=== PATIENT | female | born 1985 | race Caucasian/White ===

== ENCOUNTER 2018-11-11 17:52 | Inpatient (IN) ==
[2018-11-11] MEDS: MORPHINE 4 MG/1 ML VIAL IV PRN (19:43)
[2018-11-11] MEDS: DEXTROSE 5% NACL 0.45% 1,000 ML IV SCH (19:43)
[2018-11-11] MEDS: ONDANSETRON 4 MG/2 ML VIAL IV PRN (19:45)
[2018-11-11] MEDS ORDERED: PROMETHAZINE INJ 25 MG in SODIUM CHLORIDE 0.9% 50 ML IV PRN (21:30)
[2018-11-12] MEDS ORDERED: GLUCAGON 1 MG VIAL IM PRN (00:07)
[2018-11-12] MEDS ORDERED: DEXTROSE 50% 25 GM/50 ML VIAL IV PRN (00:07)
[2018-11-12] MEDS: cefOXitin 2,000 MG in SYRINGE 1 EACH IV SCH ×4 (00:44→18:21)
[2018-11-12] MEDS: INSULIN LISPRO 100 UNIT/ML SUBCUT SCH ×4 (01:56→18:06)
[2018-11-12] MEDS: MORPHINE 4 MG/1 ML VIAL IV PRN ×2 (05:06→08:48)
[2018-11-12] MEDS: DEXTROSE 5% NACL 0.45% 1,000 ML IV SCH ×2 (05:11→11:00)
[2018-11-12 05:14] LABS: Basophils # 0.1 10*3/uL (0.0-0.2); Basophils % 0.6 % (0.0-0.8); Eosinophils # 0.3 10*3/uL (0.0-0.87); Eosinophils % 2.3 % (0.00-10.9); Hematocrit 37.3 VOL% (35.7-47.0); Hemoglobin 12.3 GM/DL (12.0-16.0); Immature Granulocytes % 0.3 %; Immature Granulocytes Absolute 0.04 #; Lymphocytes # 2.5 10*3/uL (1.4-4.0); Mean Corpuscular Volume 87.4 FL (87-102); Mean Platelet Volume 10.7 FL (9.6-12.0); Monocytes % 5.3 % (1.7-12.7); Neutrophils % 71.5 % (38.7-73.9); Platelet Count 394 T/CUMM (130-400); Red Blood Count 4.27 MC/CUMM (3.8-5.5); Red Cell Distribution Width 13.5 % (9.3-17.3); White Blood Count 12.5 T/CUMM (4-12)
[2018-11-12 05:37] LABS: Bilirubin,Total 1.5 MG/DL (0.2-1.0); Calcium 8.6 MG/DL (8.5-10.1); Osmolality,Calculated 283.5 MOS/KG (273-304); Total Protein 6.9 G/DL (6.4-8.3)
[2018-11-12] MEDS: FAMOTIDINE 20 MG/2 ML VIAL IV SCH ×2 (08:49→21:35)
[2018-11-12] MEDS ORDERED: MORPHINE 4 MG/1 ML VIAL IV PRN (11:03)
[2018-11-12] MEDS: ENOXAPARIN 40 MG/0.4 ML SYRINGE SUBCUT SCH (13:18)
[2018-11-12] MEDS ORDERED: HYDROmorphone 2 MG/1 ML VIAL IV ONE (15:33)
[2018-11-13] MEDS: ONDANSETRON 4 MG/2 ML VIAL IV PRN (00:10)
[2018-11-13] MEDS: cefOXitin 2,000 MG in SYRINGE 1 EACH IV SCH ×5 (00:11→23:26)
[2018-11-13] MEDS: HYDROmorphone 2 MG/1 ML VIAL IV PRN ×5 (00:11→21:38)
[2018-11-13] MEDS: INSULIN LISPRO 100 UNIT/ML SUBCUT SCH ×5 (00:15→23:27)
[2018-11-13] MEDS: DEXTROSE 5% NACL 0.45% 1,000 ML IV SCH ×4 (01:56→22:10)
[2018-11-13 05:44] LABS: Basophils # 0.1 10*3/uL (0.0-0.2); Basophils % 0.4 % (0.0-0.8); Eosinophils # 0.4 10*3/uL (0.0-0.87); Eosinophils % 2.3 % (0.00-10.9); Hematocrit 37.7 VOL% (35.7-47.0); Hemoglobin 11.9 GM/DL (12.0-16.0); Immature Granulocytes % 0.6 %; Immature Granulocytes Absolute 0.09 #; Lymphocytes # 2.9 10*3/uL (1.4-4.0); Lymphocytes % 18.4 % (21.3-54.2); Mean Corpuscular HGB Conc 31.6 GM/DL (32-36); Mean Corpuscular Volume 88.7 FL (87-102); Mean Platelet Volume 10.5 FL (9.6-12.0); Monocytes % 5.6 % (1.7-12.7); Neutrophils % 72.7 % (38.7-73.9); Platelet Count 400 T/CUMM (130-400); Red Blood Count 4.25 MC/CUMM (3.8-5.5); Red Cell Distribution Width 13.3 % (9.3-17.3); White Blood Count 15.6 T/CUMM (4-12)
[2018-11-13 06:05] LABS: Calcium 8.4 MG/DL (8.5-10.1); Osmolality,Calculated 278.7 MOS/KG (273-304)
[2018-11-13] MEDS: FAMOTIDINE 20 MG/2 ML VIAL IV SCH ×2 (09:05→21:46)
[2018-11-13] MEDS: ENOXAPARIN 40 MG/0.4 ML SYRINGE SUBCUT SCH (13:01)
[2018-11-13] MEDS: POTASSIUM CHLORIDE RIDER 10 MEQ in PREMIX 1 EACH IV PRN (23:27)
[2018-11-14] MEDS: POTASSIUM CHLORIDE RIDER 10 MEQ in PREMIX 1 EACH IV PRN ×7 (01:38→17:27)
[2018-11-14] MEDS: HYDROmorphone 2 MG/1 ML VIAL IV PRN ×5 (01:56→22:53)
[2018-11-14] MEDS: cefOXitin 2,000 MG in SYRINGE 1 EACH IV SCH ×3 (05:57→21:59)
[2018-11-14] MEDS: INSULIN LISPRO 100 UNIT/ML SUBCUT SCH ×3 (06:04→18:09)
[2018-11-14 06:57] LABS: Basophils # 0.1 10*3/uL (0.0-0.2); Basophils % 0.6 % (0.0-0.8); Eosinophils # 0.4 10*3/uL (0.0-0.87); Eosinophils % 3.3 % (0.00-10.9); Hematocrit 35.8 VOL% (35.7-47.0); Hemoglobin 11.4 GM/DL (12.0-16.0); Immature Granulocytes % 0.4 %; Immature Granulocytes Absolute 0.05 #; Lymphocytes # 3.4 10*3/uL (1.4-4.0); Lymphocytes % 25.7 % (21.3-54.2); Mean Corpuscular HGB Conc 31.8 GM/DL (32-36); Mean Corpuscular Volume 88.6 FL (87-102); Mean Platelet Volume 10.3 FL (9.6-12.0); Monocytes % 6.6 % (1.7-12.7); Neutrophils % 63.4 % (38.7-73.9); Platelet Count 357 T/CUMM (130-400); Red Blood Count 4.04 MC/CUMM (3.8-5.5); Red Cell Distribution Width 13.2 % (9.3-17.3); White Blood Count 13.3 T/CUMM (4-12)
[2018-11-14 07:21] LABS: Calcium 8.3 MG/DL (8.5-10.1); Osmolality,Calculated 281.3 MOS/KG (273-304)
[2018-11-14] MEDS: FAMOTIDINE 20 MG/2 ML VIAL IV SCH ×2 (08:30→22:12)
[2018-11-14] MEDS: DEXTROSE 5% NACL 0.45% 1,000 ML IV SCH ×2 (10:03→11:35)
[2018-11-14] MEDS: ENOXAPARIN 40 MG/0.4 ML SYRINGE SUBCUT SCH (12:08)
[2018-11-15] MEDS: INSULIN LISPRO 100 UNIT/ML SUBCUT SCH ×4 (00:53→17:49)
[2018-11-15] MEDS: DEXTROSE 5% NACL 0.45% 1,000 ML IV SCH ×2 (01:41→03:58)
[2018-11-15] MEDS: HYDROmorphone 2 MG/1 ML VIAL IV PRN ×5 (03:53→21:22)
[2018-11-15] MEDS: POTASSIUM CHLORIDE RIDER 10 MEQ in PREMIX 1 EACH IV PRN ×5 (03:57→17:40)
[2018-11-15 05:23] LABS: Basophils # 0.1 10*3/uL (0.0-0.2); Basophils % 0.5 % (0.0-0.8); Eosinophils # 0.3 10*3/uL (0.0-0.87); Eosinophils % 2.5 % (0.00-10.9); Hematocrit 34.7 VOL% (35.7-47.0); Hemoglobin 11.4 GM/DL (12.0-16.0); Immature Granulocytes % 0.2 %; Immature Granulocytes Absolute 0.03 #; Lymphocytes # 2.6 10*3/uL (1.4-4.0); Lymphocytes % 20.2 % (21.3-54.2); Mean Corpuscular HGB Conc 32.9 GM/DL (32-36); Mean Corpuscular Volume 86.5 FL (87-102); Mean Platelet Volume 10.1 FL (9.6-12.0); Monocytes % 7.5 % (1.7-12.7); Neutrophils % 69.1 % (38.7-73.9); Platelet Count 355 T/CUMM (130-400); Red Blood Count 4.01 MC/CUMM (3.8-5.5); Red Cell Distribution Width 13.2 % (9.3-17.3)
[2018-11-15] MEDS: cefOXitin 2,000 MG in SYRINGE 1 EACH IV SCH ×4 (05:30→22:30)
[2018-11-15 05:58] LABS: Calcium 8.4 MG/DL (8.5-10.1); Osmolality,Calculated 282.1 MOS/KG (273-304)
[2018-11-15] MEDS ORDERED: POTASSIUM CHLORIDE 20 MEQ TABLET PO PRN (08:06)
[2018-11-15] MEDS ORDERED: POTASSIUM CHLORIDE RIDER 10 MEQ in PREMIX 1 EACH IV PRN (08:06)
[2018-11-15] MEDS: FAMOTIDINE 20 MG/2 ML VIAL IV SCH ×2 (08:45→21:24)
[2018-11-15] MEDS: POTASSIUM CHLORIDE INJ 40 MEQ in DEXTROSE 5% NACL 0.45% 1,000 ML IV SCH ×2 (09:48→17:40)
[2018-11-15] MEDS: ENOXAPARIN 40 MG/0.4 ML SYRINGE SUBCUT SCH (12:14)
[2018-11-15] MEDS: ONDANSETRON 4 MG/2 ML VIAL IV PRN (21:23)
[2018-11-16] MEDS: HYDROmorphone 2 MG/1 ML VIAL IV PRN ×6 (00:30→21:55)
[2018-11-16] MEDS: ONDANSETRON 4 MG/2 ML VIAL IV PRN ×3 (00:30→21:55)
[2018-11-16] MEDS: INSULIN LISPRO 100 UNIT/ML SUBCUT SCH ×4 (01:58→18:06)
[2018-11-16] MEDS: POTASSIUM CHLORIDE INJ 40 MEQ in DEXTROSE 5% NACL 0.45% 1,000 ML IV SCH ×2 (02:58→15:08)
[2018-11-16 04:41] LABS: Basophils # 0.1 10*3/uL (0.0-0.2); Basophils % 0.5 % (0.0-0.8); Eosinophils # 0.4 10*3/uL (0.0-0.87); Hematocrit 36.6 VOL% (35.7-47.0); Hemoglobin 11.8 GM/DL (12.0-16.0); Immature Granulocytes % 0.3 %; Immature Granulocytes Absolute 0.04 #; Lymphocytes # 2.6 10*3/uL (1.4-4.0); Lymphocytes % 21.5 % (21.3-54.2); Mean Corpuscular HGB Conc 32.2 GM/DL (32-36); Mean Corpuscular Volume 87.8 FL (87-102); Mean Platelet Volume 10.1 FL (9.6-12.0); Monocytes % 6.7 % (1.7-12.7); Platelet Count 391 T/CUMM (130-400); Red Blood Count 4.17 MC/CUMM (3.8-5.5); Red Cell Distribution Width 13.3 % (9.3-17.3)
[2018-11-16 05:13] LABS: Calcium 8.8 MG/DL (8.5-10.1); Osmolality,Calculated 278.3 MOS/KG (273-304)
[2018-11-16] MEDS: cefOXitin 2,000 MG in SYRINGE 1 EACH IV SCH ×4 (05:45→22:10)
[2018-11-16] MEDS ORDERED: MAGNESIUM SULF RIDER 2 GM in PREMIX 1 EACH IV ONE (07:47)
[2018-11-16] MEDS: FAMOTIDINE 20 MG/2 ML VIAL IV SCH ×2 (08:20→21:57)
[2018-11-16] MEDS: ENOXAPARIN 40 MG/0.4 ML SYRINGE SUBCUT SCH (12:59)
[2018-11-16] MEDS ORDERED: SUMAtriptan 25 MG TABLET PO PRN (13:08)
[2018-11-17] MEDS: HYDROmorphone 2 MG/1 ML VIAL IV PRN ×7 (01:28→22:06)
[2018-11-17] MEDS: POTASSIUM CHLORIDE INJ 40 MEQ in DEXTROSE 5% NACL 0.45% 1,000 ML IV SCH ×3 (01:30→11:16)
[2018-11-17] MEDS: INSULIN LISPRO 100 UNIT/ML SUBCUT SCH ×5 (01:37→18:11)
[2018-11-17] MEDS: ONDANSETRON 4 MG/2 ML VIAL IV PRN (03:30)
[2018-11-17 04:39] LABS: Basophils % 0.4 % (0.0-0.8); Eosinophils # 0.3 10*3/uL (0.0-0.87); Eosinophils % 3.2 % (0.00-10.9); Hematocrit 36.6 VOL% (35.7-47.0); Hemoglobin 11.7 GM/DL (12.0-16.0); Immature Granulocytes % 0.2 %; Immature Granulocytes Absolute 0.02 #; Lymphocytes # 2.4 10*3/uL (1.4-4.0); Lymphocytes % 23.3 % (21.3-54.2); Mean Corpuscular Volume 88.8 FL (87-102); Mean Platelet Volume 10.5 FL (9.6-12.0); Monocytes % 7.8 % (1.7-12.7); Neutrophils % 65.1 % (38.7-73.9); Platelet Count 411 T/CUMM (130-400); Red Blood Count 4.12 MC/CUMM (3.8-5.5); Red Cell Distribution Width 13.2 % (9.3-17.3); White Blood Count 10.3 T/CUMM (4-12)
[2018-11-17] MEDS ORDERED: ONDANSETRON 4 MG/2 ML VIAL IV PRN ×2 (04:40→14:50)
[2018-11-17] MEDS ORDERED: ONDANSETRON 4 MG/2 ML VIAL IV STA (04:40)
[2018-11-17] MEDS: cefOXitin 2,000 MG in SYRINGE 1 EACH IV SCH ×4 (05:05→23:20)
[2018-11-17 05:07] LABS: Calcium 8.4 MG/DL (8.5-10.1); Osmolality,Calculated 276.5 MOS/KG (273-304)
[2018-11-17] MEDS ORDERED: LIDOCAINE 1% 5 ML VIAL ONE (10:57)
[2018-11-17] MEDS ORDERED: BUPIVACAINE 0.5% 50 ML VIAL ONE (10:57)
[2018-11-17] MEDS ORDERED: DEXAMETHASONE 4 MG/1 ML VIAL ONE (10:57)
[2018-11-17] MEDS ORDERED: EPINEPHrine 1 MG/ML VIAL ONE (10:57)
[2018-11-17] MEDS ORDERED: MIDAZOLAM 2 MG/2 ML VIAL ONE (11:32)
[2018-11-17] MEDS ORDERED: fentaNYL 100 MCG/2 ML VIAL ONE ×2 (11:32→14:56)
[2018-11-17] MEDS ORDERED: ONDANSETRON 4 MG/2 ML VIAL ONE ×2 (14:43→14:53)
[2018-11-17] MEDS ORDERED: HYDROmorphone 2 MG/1 ML VIAL ONE (14:43)
[2018-11-17] MEDS ORDERED: SEVOFLURANE 1 UNIT/15 MINUTE INH ONE (14:53)
[2018-11-17] MEDS ORDERED: GLYCOPYRROLATE 0.4 MG/2 ML VIAL ONE (14:53)
[2018-11-17] MEDS ORDERED: NEOSTIGMINE 10 MG/10 ML VIAL ONE (14:53)
[2018-11-17] MEDS ORDERED: LACTATED RINGERS 1,000 ML IV ONE (14:53)
[2018-11-17] MEDS ORDERED: ROCURONIUM 100 MG/10 ML VIAL IV ONE (14:53)
[2018-11-17] MEDS ORDERED: PROPOFOL 200 MG/20 ML VIAL IV ONE (14:53)
[2018-11-17] MEDS ORDERED: MEPERIDINE 25 MG/1 ML VIAL IV ONE (15:09)
[2018-11-17] MEDS: FAMOTIDINE 20 MG/2 ML VIAL IV SCH ×2 (17:57→20:54)
[2018-11-17] MEDS: ENOXAPARIN 40 MG/0.4 ML SYRINGE SUBCUT SCH (17:58)
[2018-11-17] MEDS ORDERED: DEXT 5% NACL 0.45% KCL 40 MEQ 40 MEQ/1,000 ML BAG IV SCH (18:10)
[2018-11-17] MEDS: DEXT 5% LACT RING KCL 20 MEQ 20 MEQ/1,000 ML BAG IV SCH (18:10)
[2018-11-18] MEDS: HYDROmorphone 2 MG/1 ML VIAL IV PRN ×6 (01:12→21:29)
[2018-11-18] MEDS: INSULIN LISPRO 100 UNIT/ML SUBCUT SCH ×5 (01:14→18:36)
[2018-11-18] MEDS: DEXT 5% LACT RING KCL 20 MEQ 20 MEQ/1,000 ML BAG IV SCH ×3 (02:33→18:35)
[2018-11-18 05:02] LABS: Basophils # 0.1 10*3/uL (0.0-0.2); Basophils % 0.3 % (0.0-0.8); Eosinophils # 0.1 10*3/uL (0.0-0.87); Eosinophils % 0.5 % (0.00-10.9); Hematocrit 36.6 VOL% (35.7-47.0); Hemoglobin 11.5 GM/DL (12.0-16.0); Immature Granulocytes % 0.6 %; Lymphocytes # 2.1 10*3/uL (1.4-4.0); Lymphocytes % 13.7 % (21.3-54.2); Mean Corpuscular HGB Conc 31.4 GM/DL (32-36); Mean Corpuscular Volume 89.3 FL (87-102); Mean Platelet Volume 10.9 FL (9.6-12.0); Monocytes % 6.9 % (1.7-12.7); Platelet Count 306 T/CUMM (130-400); Red Cell Distribution Width 13.2 % (9.3-17.3); White Blood Count 15.5 T/CUMM (4-12)
[2018-11-18 05:27] LABS: Osmolality,Calculated 275.7 MOS/KG (273-304)
[2018-11-18] MEDS: cefOXitin 2,000 MG in SYRINGE 1 EACH IV SCH ×4 (05:48→23:47)
[2018-11-18] MEDS: FAMOTIDINE 20 MG/2 ML VIAL IV SCH ×2 (08:55→21:32)
[2018-11-18] MEDS: ENOXAPARIN 40 MG/0.4 ML SYRINGE SUBCUT SCH (12:49)
[2018-11-18] MEDS: ALBUTEROL/IPRATROPIUM 3 ML NEB RESP TX SCH ×2 (13:36→19:26)
[2018-11-19] MEDS: INSULIN LISPRO 100 UNIT/ML SUBCUT SCH ×4 (00:51→19:10)
[2018-11-19] MEDS: HYDROmorphone 2 MG/1 ML VIAL IV PRN ×7 (00:53→22:48)
[2018-11-19] MEDS: ALBUTEROL/IPRATROPIUM 3 ML NEB RESP TX SCH ×4 (01:15→19:15)
[2018-11-19] MEDS: DEXT 5% LACT RING KCL 20 MEQ 20 MEQ/1,000 ML BAG IV SCH ×2 (02:48→21:02)
[2018-11-19] MEDS: cefOXitin 2,000 MG in SYRINGE 1 EACH IV SCH ×4 (04:14→22:49)
[2018-11-19 05:13] LABS: Basophils # 0.1 10*3/uL (0.0-0.2); Basophils % 0.6 % (0.0-0.8); Eosinophils # 0.3 10*3/uL (0.0-0.87); Eosinophils % 2.6 % (0.00-10.9); Hematocrit 34.8 VOL% (35.7-47.0); Hemoglobin 10.9 GM/DL (12.0-16.0); Immature Granulocytes % 0.5 %; Immature Granulocytes Absolute 0.05 #; Lymphocytes # 2.9 10*3/uL (1.4-4.0); Lymphocytes % 26.4 % (21.3-54.2); Mean Corpuscular HGB Conc 31.3 GM/DL (32-36); Mean Corpuscular Volume 89.9 FL (87-102); Mean Platelet Volume 11.4 FL (9.6-12.0); Monocytes % 6.6 % (1.7-12.7); Neutrophils % 63.3 % (38.7-73.9); Platelet Count 279 T/CUMM (130-400); Red Blood Count 3.87 MC/CUMM (3.8-5.5); Red Cell Distribution Width 13.5 % (9.3-17.3); White Blood Count 10.9 T/CUMM (4-12)
[2018-11-19 05:43] LABS: Eosinophils 7 % (0-10); Hypochromasia 1+; Lymphocytes 28 % (20-55); Platelet Estimate Adequate; Segmented Neutrophils 54 % (50-85); Total Cells Counted 100
[2018-11-19 06:35] LABS: Calcium 8.6 MG/DL (8.5-10.1); Osmolality,Calculated 278.4 MOS/KG (273-304)
[2018-11-19] MEDS ORDERED: MAGNESIUM SULF RIDER 2 GM in PREMIX 1 EACH IV ONE (07:52)
[2018-11-19] MEDS: FAMOTIDINE 20 MG/2 ML VIAL IV SCH ×2 (08:54→20:50)
[2018-11-19] MEDS: LACTATED RINGERS 1,000 ML IV SCH ×2 (09:27→14:58)
[2018-11-19] MEDS: INSULIN GLARGINE 100 UNIT/ML SUBCUT SCH (11:38)
[2018-11-19] MEDS: INSULIN REGULAR 100 UNIT/ML SUBCUT SCH ×2 (11:48→18:52)
[2018-11-19] MEDS: ENOXAPARIN 40 MG/0.4 ML SYRINGE SUBCUT SCH (12:00)
[2018-11-20] MEDS: INSULIN LISPRO 100 UNIT/ML SUBCUT SCH ×2 (00:08→06:37)
[2018-11-20] MEDS: ALBUTEROL/IPRATROPIUM 3 ML NEB RESP TX SCH ×2 (01:10→06:58)
[2018-11-20] MEDS: LACTATED RINGERS 1,000 ML IV SCH (01:34)
[2018-11-20] MEDS: HYDROmorphone 2 MG/1 ML VIAL IV PRN ×2 (01:36→04:37)
[2018-11-20] MEDS: cefOXitin 2,000 MG in SYRINGE 1 EACH IV SCH (04:39)
[2018-11-20 05:19] LABS: Osmolality,Calculated 279.3 MOS/KG (273-304)
[2018-11-20] MEDS: INSULIN REGULAR 100 UNIT/ML SUBCUT SCH (07:15)
[2018-11-20 07:25] VITALS: BP 120/69
[2018-11-20] MEDS ORDERED: oxyCODONE/ACETAMINOPHEN 5-325 MG TABLET PO PRN ×2 (07:49)
[2018-11-20] MEDS: INSULIN GLARGINE 100 UNIT/ML SUBCUT SCH (09:27)
[2018-11-20] MEDS: FAMOTIDINE 20 MG/2 ML VIAL IV SCH (09:29)
== END 2018-11-20 10:58 | disposition home or self-care (01) | DRG 336 ==
LOC: EDBD → EDUNIT# → N.ED 17:52 → N.EDINP 18:51 → N.3E 19:47
PROVIDERS: ADMIT Surgery; ATTEND Surgery